=== PATIENT | male | born 2000 | race African-American/Black ===

== ENCOUNTER 2020-03-01 12:22 | Emergency (ER) | payer MEDICAID ==
[~2020-03-01] VITALS: Ht 177.8 cm; Wt 76.0 kg
[2020-03-01 12:25] VITALS: BP 126/74
[2020-03-01] MEDS ORDERED: ACETAMINOPHEN 325MG TABLET PO ONE (12:45)
[2020-03-01] MEDS ORDERED: KETOROLAC 30MG/ML VIAL IM ONE (12:45)
== END 2020-03-01 13:05 | disposition home or self-care (01) ==
LOC: ER 12:36
DX: M79.641 Pain in right hand (principal); M79.642 Pain in left hand; J45.909 Unspecified asthma, uncomplicated
CPT/HCPCS: 96372; 99283; J1885